=== PATIENT | female | born 1990 | race Caucasian/White ===

== ENCOUNTER → 2019-04-11 | Outpatient (CLI) | payer MEDICAID, SELFPAY ==
[2015-01-07 13:50] VITALS: BMI 34.2
[2019-04-16 16:32] LABS: HPV Reflexed? NOT INDICATED
== END | disposition home or self-care (01) ==
LOC: LABSPEC 15:12
PROVIDERS: Visit Provider Obstetrics & Gynecology
DX: Z12.4 Encounter for screening for malignant neoplasm of cervix (principal)
CPT/HCPCS: 88175; G0145

== ENCOUNTER → 2020-04-29 15:08 | Outpatient (CLI) | payer MEDICAID, SELFPAY ==
[2015-01-07 13:50] VITALS: BMI 34.2
[2020-04-29 16:49] LABS: Vitamin D,25 Hydroxy 26.3 ng/mL
== END ==
PROVIDERS: Visit Provider Obstetrics & Gynecology
DX: E55.9 Vitamin D deficiency, unspecified (principal)
CPT/HCPCS: 36415; 82306

== ENCOUNTER → 2020-09-02 14:28 | Outpatient (CLI) | payer MEDICAID, SELFPAY ==
[2015-01-07 13:50] VITALS: BMI 34.2
[2020-09-02 17:50] LABS: Vitamin D,25 Hydroxy 51.3 ng/mL
== END ==
PROVIDERS: Visit Provider Obstetrics & Gynecology
DX: E55.9 Vitamin D deficiency, unspecified (principal)
CPT/HCPCS: 36415; 82306

== ENCOUNTER 2021-06-16 14:59 | Outpatient (CLI) | payer MEDICAID, SELFPAY ==
[2021-06-16 16:28] LABS: Estradiol 48.5 pg/mL; Follicle Stimulating Hormone 5.6 mIU/mL
[2021-06-18 08:35] LABS: Sex Hormone-binding Globulin 32.1 nmol/L (24.6-122.0)
[2021-06-18 10:15] LABS: Prolactin 11.8 ng/mL
[2021-06-19 06:11] LABS: Chlamydia By Nucleic Acid AMP Negative (Negative)
[2021-06-19 09:57] LABS: Gonococcus By Nucleic Acid AMP Negative (Negative)
[2021-06-22 21:23] LABS: HPV Reflexed? NOT INDICATED
== END 2021-06-16 23:59 | disposition short-term general hospital (02) ==
LOC: WOBLAB 14:59
PROVIDERS: Visit Provider Obstetrics & Gynecology
DX: Z12.4 Encounter for screening for malignant neoplasm of cervix (principal); Z11.3 Encounter for screening for infections with a predominantly sexual mode of transmission
CPT/HCPCS: 36415; 82627; 82670; 83001; 83002; 84146; 84270; 84403; 87491; 87591; 88175; 82626; G0145

== ENCOUNTER 2021-07-06 08:56 | Outpatient (CLI) | payer MEDICAID, SELFPAY ==
[2021-07-06 09:50] LABS: Glucose 75GTT - Fasting 101 mg/dL (70-99)
[2021-07-06 09:57] LABS: Insulin 75GTT - Fasting 22.6 mU/L (2.6-37.6)
[2021-07-06 10:46] LABS: Glucose 75GTT - 30 minutes 130 mg/dL (100-160)
[2021-07-06 10:47] LABS: Glucose 75GTT - 60 minutes 138 mg/dL (100-160)
[2021-07-06 10:49] LABS: Insulin 75GTT - 30 MIN 158.7 mU/L (Not Estab.)
[2021-07-06 10:49] LABS: Insulin 75GTT - 60 min 170.1 mU/L (Not Estab)
[2021-07-06 12:04] LABS: Glucose 75GTT - 120 minutes 118 mg/dL (70-140)
== END 2021-07-06 23:59 | disposition home or self-care (01) ==
LOC: WOBLAB 08:57
PROVIDERS: Visit Provider Obstetrics & Gynecology
DX: N91.1 Secondary amenorrhea (principal)
CPT/HCPCS: 36415; 82951; 82952; 83036; 83525

== ENCOUNTER → 2021-10-20 | Outpatient (CLI) | payer MEDICAID, SELFPAY ==
[2021-10-20 16:01] LABS: Hematocrit 43.6 % (37-47); Hemoglobin 14.3 g/dL (12.0-15.0); Mean Corp Hgb Conc 32.8 g/dL (32-36); Mean Corpuscular Hgb 30.9 pg (27.0-32.0); Mean Corpuscular Volume 94.2 fL (81-99); Mean Platelet Vol. 9.1 fl (6.2-12.0); Platelet Count 375 K/mm3 (150-450); RBC Distribution Width CV 13.1 % (11.6-14.6); RBC Distribution Width SD 45.3 fl (35.1-43.9); Red Blood Count 4.63 M/mm3 (4.2-5.4); White Blood Count 8.9 K/mm3 (4.4-11.0)
== END | disposition home or self-care (01) ==
PROVIDERS: Visit Provider Obstetrics & Gynecology
DX: N76.0 Acute vaginitis (principal); N77.1 Vaginitis, vulvitis and vulvovaginitis in diseases classified elsewhere; R53.83 Other fatigue
CPT/HCPCS: 36415; 85027

== ENCOUNTER → 2022-06-07 | Outpatient (CLI) | payer MEDICAID, SELFPAY ==
[2022-06-07 17:26] LABS: Hematocrit 42.7 % (37-47); Hemoglobin 13.8 g/dL (12.0-15.0); Mean Corp Hgb Conc 32.3 g/dL (32-36); Mean Corpuscular Hgb 30.8 pg (27.0-32.0); Mean Corpuscular Volume 95.3 fL (81-99); Mean Platelet Vol. 8.7 fl (6.2-12.0); Platelet Count 304 K/mm3 (150-450); RBC Distribution Width CV 13.5 % (11.6-14.6); RBC Distribution Width SD 47.6 fl (35.1-43.9); Red Blood Count 4.48 M/mm3 (4.2-5.4); White Blood Count 6.1 K/mm3 (4.4-11.0)
[2022-06-07 17:51] LABS: Hemoglobin A1c 4.7 % (3.8-5.6)
[2022-06-07 18:51] LABS: Vitamin B12 598 pg/mL (211-911); Vitamin D,25 Hydroxy 29.2 ng/mL
[2022-06-07 19:17] LABS: ALB/GLOB Ratio 0.9 RATIO (0.9-2.4); AST(SGOT) 12 U/L (15-37); Alanine Aminotransfer ALT/SGPT 24 U/L (13-56); Albumin, Serum 3.5 g/dL (3.2-5.0); Alkaline Phosphatase 50 U/L (45-117); Anion Gap 5 (5-15); BUN 11 mg/dL (7-18); BUN/Creat Ratio 14.4 RATIO (10-20); Calcium,Total 8.8 mg/dL (8.5-10.1); Chloride 109 mmol/L (98-107); Creatinine, Serum 0.77 mg/dL (0.55-1.02); EST Glomerular Filtration Rate 94 mL/min (>60); Est Glom Filt Rate - Afr Amer 114 mL/min (>60); Globulin 3.9 g/dL (2.2-4.2); Glucose 86 mg/dL (74-106); Iron 87 ug/dL (50-170); Iron Binding Capacity,Total 370 ug/dL (250-450); Potassium 4.1 mmol/L (3.5-5.1); Protein, Total 7.4 g/dL (6.4-8.2); Sodium Level 142 mmol/L (136-145); Thyroid Stim Hormone (TSH) 1.67 uIU/mL (0.358-3.74)
== END | disposition home or self-care (01) ==
LOC: WOBLAB 17:12
PROVIDERS: Visit Provider Counselor Mental Health
DX: Z79.899 Other long term (current) drug therapy (principal); E55.9 Vitamin D deficiency, unspecified; E61.1 Iron deficiency
CPT/HCPCS: 36415; 80053; 82306; 82607; 83036; 83540; 83550; 84443; 85027

== ENCOUNTER → 2022-09-06 | Outpatient (CLI) | payer MEDICAID, SELFPAY ==
[2022-09-06 15:55] LABS: Hemoglobin A1c 4.9 % (3.8-5.6)
[2022-09-06 16:21] LABS: HIV - WCH Non-Reactive (Nonreactive); Syphilis Antibodies Non-reactive
[2022-09-08 05:07] LABS: HEPATITIS B SURFACE AG Negative (Negative); Hepatitis B Core Ab Total Negative (Negative)
[2022-09-08 11:17] LABS: Hep B Surface Antibodies Non Reactive (.)
== END | disposition home or self-care (01) ==
LOC: WOBLAB 14:52
PROVIDERS: Visit Provider Student in an Organized Health Care Education/Training Program
DX: Z01.419 Encounter for gynecological examination (general) (routine) without abnormal findings (principal); Z11.3 Encounter for screening for infections with a predominantly sexual mode of transmission; E28.2 Polycystic ovarian syndrome
CPT/HCPCS: 36415; 83036; 86703; 86704; 86705; 86706; 86707; 86780; 86803; 87340; 87350

== ENCOUNTER → 2022-11-15 | Outpatient (CLI) | payer MEDICAID, SELFPAY ==
[2022-11-15 16:26] LABS: Follicle Stimulating Hormone 5.4 mIU/mL; Luteinizing Hormone 6.2 mIU/mL; Prolactin 8.6 ng/mL; T4 Free Direct 0.92 ng/dL (0.76-1.46); Thyroid Stim Hormone (TSH) 2.32 uIU/mL (0.358-3.74)
== END | disposition home or self-care (01) ==
LOC: WOBLAB 15:22
PROVIDERS: Visit Provider Nurse Practitioner Women's Health
DX: E28.2 Polycystic ovarian syndrome (principal)
CPT/HCPCS: 36415; 82670; 83001; 83002; 84146; 84439; 84443

== ENCOUNTER 2024-09-28 20:45 | Emergency (ER) | payer BC, SELFPAY ==
[2024-09-28 20:46] VITALS: BP 129/89; PULSE 101; RESP 16; TEMP 35.9; O2SAT 100; BMI 42.2
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
[2024-09-28] MEDS: Ibuprofen 600 MG Tablet PO (21:59)
[2024-09-28 22:00] VITALS: BP 131/69; PULSE 81; RESP 18; TEMP 36.7; O2SAT 100
== END 2024-09-28 22:01 | disposition home or self-care (01) ==
PROVIDERS: Emergency Provider Emergency Medicine; Visit Provider Emergency Medicine
DX: S39.012A Strain of muscle, fascia and tendon of lower back, initial encounter (principal); S16.1XXA Strain of muscle, fascia and tendon at neck level, initial encounter; V89.2XXA Person injured in unspecified motor-vehicle accident, traffic, initial encounter; F41.9 Anxiety disorder, unspecified; E66.9 Obesity, unspecified; Z79.899 Other long term (current) drug therapy
CPT/HCPCS: 72040; 72100; 99282

== ENCOUNTER → 2024-12-27 | Outpatient (CLI) | payer BC, SELFPAY | END | disposition home or self-care (01) | PROVIDERS: Referring Provider Nurse Practitioner Family; Visit Provider Nurse Practitioner Family | DX: G47.10 Hypersomnia, unspecified (principal) | CPT/HCPCS: 95810 ==

== ENCOUNTER → 2025-01-30 | Outpatient (CLI) | payer BC, SELFPAY ==
[2025-01-30 14:19] LABS: Ferritin 32 ng/mL (22-378)
[2025-01-30 21:38] LABS: Xtra Tube EP Lab EXTRA TUBE
== END | disposition home or self-care (01) ==
LOC: PAVLAB 13:29
PROVIDERS: Referring Provider Nurse Practitioner Family; Visit Provider Nurse Practitioner Family
DX: E61.1 Iron deficiency (principal)
CPT/HCPCS: 36415; 82728